=== PATIENT | male | born 1950 | race Caucasian/White ===

== ENCOUNTER 2017-07-30 19:09 | Inpatient (IN) | payer BC ==
[~2017-07-30] VITALS: Ht 175.3 cm; Wt 75.0 kg
[~2017-07-30 19:09] MED LIST: ANTIPYRINE-BENZ14 ML OT; DOXYCYCLINE 10100 MG PO; LISINOPRIL10 MG PO; MEDROLDOSEPACK PO; NORCO 5-325 TA1 EACH; PROAIR HFA8.5 GM INH; PROAIR HFA8.5 GM PO
[2017-07-30 19:19] VITALS: BP 146/99
[2017-07-30 19:46] LABS: ABSOLUTE BASOPHILS 0.1 thou/uL (0.0-0.2); ABSOLUTE EOSINOPHILS 0.3 thou/uL (0.0-0.7); ABSOLUTE LYMPHOCYTES 1.8 thou/uL (0.8-5.3); ABSOLUTE MONOCYTES 0.7 thou/uL (0.0-1.2); ABSOLUTE NEUTROPHILS 4.4 thou/uL (1.6-8.1); BASOPHILS 0.8 %; HEMATOCRIT 45.6 % (42.0-52.0); HEMOGLOBIN 15.7 gm/dL (14.0-18.0); LYMPHOCYTES 24.8 %; MCHC 34.5 g/dL (28.0-37.0); MCV 89.9 fL (80.0-100.0); MONOCYTES 9.1 %; MPV 7.8 fl. (7.2-11.1); NUCLEATED RBCS 0 /100WBC; PLATELET COUNT* 247 thou/uL (150-400); POLYS 61.3 %; RBC 5.07 mil/uL (4.50-6.00); WBC 7.2 thou/uL (4.0-11.0)
[2017-07-30 19:57] LABS: ANION GAP 6 mmol/L (7-16); BUN 24 mg/dL (7-18); CALCIUM 9.1 mg/dL (8.5-10.1); CHLORIDE 104 mmol/L (98-107); CO2 30 mmol/L (21-32); CREATININE 1.1 mg/dL (0.6-1.3); GLUCOSE 113 mg/dL (70-99); POTASSIUM 3.8 mmol/L (3.5-5.1); SODIUM 140 mmol/L (136-145)
[2017-07-30 19:59] LABS: INR 1.1; PROTIME 10.7 Seconds (9.20-11.50)
[2017-07-30 20:07] LABS: ALBUMIN 4.1 g/dL (3.4-5.0); ALKALINE PHOSPHATASE 74 U/L (46-116); NT-PRO BRAIN NAT PEPTIDE 101 pg/mL (<300); SGOT 30 U/L (15-37); SGPT 36 U/L (30-65); TOTAL BILIRUBIN 0.4 mg/dL (<0.1-1.0); TOTAL PROTEIN 7.3 g/dL (6.4-8.2); TROPONIN-I LEVEL <0.06 ng/mL (<0.06)
[2017-07-30 22:01] VITALS: BP 118/80
[2017-07-30 22:15] VITALS: BP 122/80
[2017-07-31] VITALS: BP 106/64
[2017-07-31 03:05] LABS: HEMATOCRIT 43.1 % (42.0-52.0); HEMOGLOBIN 14.6 gm/dL (14.0-18.0); MCH 30.5 pg (26.0-34.0); MCHC 33.8 g/dL (28.0-37.0); MCV 90.2 fL (80.0-100.0); RBC 4.78 mil/uL (4.50-6.00); RDW-CV 13.1 % (10.5-14.5); WBC 6.7 thou/uL (4.0-11.0)
[2017-07-31 04:00] VITALS: BP 95/56
[2017-07-31 04:06] LABS: CALCIUM 8.7 mg/dL (8.5-10.1); MAGNESIUM 2.1 mg/dL (1.8-2.4); POTASSIUM 4.1 mmol/L (3.5-5.1)
[2017-07-31 05:18] LABS: CHOLESTEROL 128 mg/dL (<200); HDL CHOLESTEROL 41 mg/dL (>40); LDL CHOLESTEROL 77 mg/dL (<100); TC:HDL 3.1 Ratio (Not establshd); TRIGLYCERIDE 53 mg/dL (<150); VLDL 11 mg/dL (<40)
[2017-07-31 05:18] LABS: URINE BILIRUBIN NEGATIVE (Negative); URINE BLOOD NEGATIVE (Negative); URINE CLARITY CLEAR; URINE COLOR YELLOW; URINE GLUCOSE-RANDOM NEGATIVE (Negative); URINE KETONES NEGATIVE (Negative); URINE LEUKOCYTES-REFLEX NEGATIVE (Negative); URINE NITRITE-REFLEX NEGATIVE (Negative); URINE PROTEIN NEGATIVE (Negative); URINE SPECIFIC GRAVITY 1.025 (1.005-1.030); URINE UROBILINOGEN 0.2 E.U./dl (0.2-1.0)
[2017-07-31 05:22] LABS: SERUM ASSESSMENT Clear
[2017-07-31 08:00] VITALS: BP 114/68
--- NOTE | 2017-07-31 13:11 | EKG ---
[place] [address] ELECTROCARDIOGRAM REPORT Name: CHERYL GOEL Room: [address] ADM IN M.R.#: [id number] Admission: 07/30/17 Attend Phys: Marcelo Esposito, Discharge: Date of : 52 Report #: [id number] THIS REPORT FOR: //name// [facility] ED Test Date: 2017-07-30 Test Time: 19:29:05 Pat Name: CHERYL GOEL Department: Room: [facility] Gender: M Per Assessment Nurse: : 1950 Requested By: Lizbeth Cottrell Order Number: [id number] MD: Maximiliano Gentile Measurements Intervals [place] Rate: 51 P: 59 CA: 209 QRS: 31 QRSD: 98 T: 34 QT: 439 QTc: 405 Interpretive Statements Sinus rhythm Probable left atrial enlargement ST elevation, consider anterior injury Compared to ECG 08/16/2015 20:47:10 ST (T wave) deviation now present Myocardial infarct finding now present Electronically Signed On 07-31-2017 13:11:41 OVERLAY OPERATOR by Maximiliano Gentile [email or web address] <ELECTRONICALLY SIGNED> By: Maximiliano Gentile MD, FAC 07/31/17 1311 28 28 Maximiliano Gentile MD, [facility] /EPI
[2017-07-31 17:47] VITALS: BP 112/49
[2017-08-01 00:18] VITALS: BP 105/67
[2017-08-01 12:00] VITALS: BP 105/72
--- NOTE | 2017-08-01 13:52 | EXE ---
[place] [address] STRESS ECHOCARDIOGRAM Name: CHERYL GOEL Room: [facility] IN M.R.#: [id number] Admission: 07/30/17 Attend Phys: Marcelo Lee Discharge: Date of : 52 Date of Service: 08/01/17 1351 Report #: [id number] THIS REPORT FOR: //name// APPROVED REPORT Exam: Stress Echocardiogram Indication: Chest pain Patient Location: In-Patient Stress Nurse: Farideh Banks RN Room #: [facility] Supervising Physician: Bart Mota MD Status: routine Ht: 5 ft 9 in HR: 51 bpm BP: 116/77 mmHg Medical History Cardiac Risk Factors: HTN, FHX of CAD Procedure The patient underwent an Exercise Stress Test using the [place] Protocol. Blood pressure, heart rate, and EKG were monitored. An Echocardiogram was performed by instrument repair technician in four stages in quad fashion. At peak stress, four selected images were obtained and placed side by side with resting images for comparison. Stress Test Details Stress Test: Exercise stress testing was performed using a [place] protocol. HR Resting HR: 51 bpm Max Heart Rate (APMHR): 155 bpm Max HR Achieved: 145 bpm Target HR (85% APMHR): 131 bpm % of APMHR: 93 Recovery HR: 81 bpm HR response to stress: Normal HR response to stress BP Resting BP: 116/77 mmHg Max BP: 179/91 mmHg Recovery BP: 141/86 mmHg ECG Resting ECG: Sinus Rhythm Stress ECG: Sinus Tachycardia Maximum ST Deviation: 0 [place] [address] STRESS ECHOCARDIOGRAM Name: CHERYL GOEL Room: [address]#: [id number] Admission: 07/30/17 Attend Phys: Marcelo Lee Discharge: Date of : 52 Date of Service: 08/01/17 1351 Report #: [id number] Recovery ECG: Sinus Rhythm Recovery ST Deviation: 0 mm Clinical Reason for Termination: Completed protocol, Dyspnea Exercise duration: 9 min 43 sec Highest Stage Achieved: Stage 4: 4.2 mph at 16% grade. Exercise capacity: 11.33 METs Pre-Stress Echo The resting Echocardiogram showed normal left ventricular contractility with an estimated Ejection Fraction of about 60-65%. Post-Stress Echo The stress Echocardiogram showed normal left ventricular contractility with an estimated Ejection Fraction of about >70%. Conclusion Clinical Response: Non-ischemic Exercise Capacity: Average Stress ECG Response: Non-ischemic Stress Echo Images: Non-ischemic low risk stress echo for future cardiac events Other Information Study Quality: Excellent <Conclusion> low risk stress echo for future cardiac events <ELECTRONICALLY SIGNED> By: Bart Mota MD, FACC 08/01/17 1351 135 135 Bart Mota MD, [facility] /INF
[2017-08-01 15:12] VITALS: BP 105/72
== END 2017-08-01 15:20 | disposition home or self-care (01) | DRG 149 ==
LOC: M.ERS 19:09 → M.3W 21:07 → M.TBA-ER 21:07 → M.3W 22:07
PROVIDERS: Emergency Medicine; ADMIT Family Medicine
DX: H81.10 Benign paroxysmal vertigo, unspecified ear (principal); I10 Essential (primary) hypertension; R00.1 Bradycardia, unspecified; J45.909 Unspecified asthma, uncomplicated; R20.2 Paresthesia of skin; Z90.49 Acquired absence of other specified parts of digestive tract; Z82.49 Family history of ischemic heart disease and other diseases of the circulatory system